=== PATIENT | female | born 1950 | race Caucasian/White ===

== ENCOUNTER 2023-11-20 18:09 | Emergency (ER) | payer MEDICARE, SELFPAY ==
[2023-11-20 18:09] VITALS: BP 130/88; PULSE 67; RESP 15; RESP 16; TEMP 36.8; O2SAT 97; O2SAT 98; BMI 26.5
--- NOTE | 2023-11-20 18:22 | EDS_ITS ---
HPI <ROSA Cosme - Last Filed: 11/20/23 19:44> History of Present Illness Chief Complaint: Lower Extremity Injury Narrative Narrative: 73-year-old female hit her left fifth toe on a door frame causing pain and a laceration. She is ambulatory. She states she broke the left fifth toe years ago and has a deformity. PFSH <ROSA Cosme - Last Filed: 11/20/23 19:44> [facility] Medical History (Updated 11/20/23 @ 19:19 by ROSA Cosme) Arthritis Back pain Difficulty balancing Hemorrhoids Knee pain Home Medications bupropion HCl 150 mg 24 hr tablet, extended release 150 mg PO DAILY 11/20/23 [History Last Taken Unknown] cephalexin 500 mg capsule 500 mg PO BID 7 days #14 caps 11/20/23 [Rx Last Taken Unknown] triamterene 37.5 mg-hydrochlorothiazide 25 mg capsule 1 cap PO DAILY 11/20/23 [History Last Taken Unknown] Allergy/AdvReac Type Severity Reaction Status Date / Time No Known Allergies Allergy Verified 11/20/23 18:11 Family History (Updated 07/10/18 @ 09:22 by Becky Baez) Other Breast cancer Colon cancer Lung cancer Malignant neoplasm of throat Pancreatic cancer Social History (Updated 07/10/18 @ 09:40 by ROSA Perez) Smoking Status: Former smoker alcohol intake: current ROS <ROSA Cosme - Last Filed: 11/20/23 19:44> ROS ED ROS Narrative Neuro: Negative for motor/sensory dysfunction. Skin: Positive for wound. Musc: Positive for left fifth toe pain. EXAM <ROSA Cosme - Last Filed: 11/20/23 19:44> Physical Exam Narrative Exam Narrative: CONST: Patient sitting in no acute distress. EYES: Normal inspection. EXTREMITIES: Left fifth toe has chronic deformity per patient and is raised above the rest. It has soft tissue swelling and is tender to palpation. No other tenderness of the ankle or foot. 1 cm linear laceration on the plantar aspect base of the fifth toe with no active bleeding no foreign body. NEURO: Alert and answering questions appropriately. PSYCH: Normal affect. Const Vital Signs: 11/20/23 18:09 11/20/23 18:09 Temperature 98.3 F 98.3 F Temperature Source Temporal Temporal Pulse Rate 67 67 Respiratory Rate 15 16 Blood Pressure 130/88 H 130/88 H Blood Pressure Mean 102 102 Pulse Ox 98 97 Oxygen Delivery Method Room Air Room Air <Dr. Jason Barone DO - Last Filed: 11/20/23 19:41> Physical Exam Const Vital Signs: 11/20/23 18:09 11/20/23 18:09 Temperature 98.3 F 98.3 F Temperature Source Temporal Temporal Pulse Rate 67 67 Respiratory Rate 15 16 Blood Pressure 130/88 H 130/88 H Blood Pressure Mean 102 102 Pulse Ox 98 97 Oxygen Delivery Method Room Air Room Air MDM <Celestina Lion PA - Last Filed: 11/20/23 19:44> [facility] Narrative Medical decision making narrative: Patient has an open left fifth toe fracture. I repaired the 1 cm laceration with 3 sutures. See procedure note. I discussed the case with Dr. Rice who advised Fabrice and he will see her in the office this week for wound recheck. Patient was comfortable with this plan and discharged in stable condition. Patient seen and evaluated with ZINA. I personally interviewed and examined the patient. I was involved in all aspects of patient's orders, interpretation of results, and treatment. Patient presents with an injury to her left small toe. Patient states that she bumped it on a door frame. She has had prior fracture to this toe. She sustained a laceration. She states she is up-to-date on tetanus. She is not on blood thinners. Left foot-patient has 1 cm laceration at the plantar aspect of the proximal phalanx of the fifth toe. Mild diffuse bony tenderness about the fifth MTP joint and fifth toe diffusely. No significant ecchymosis or bruising noted. Will obtain x-rays of the left foot. Patient will require suture repair of the laceration. Three-view x-rays of the left foot obtained interpreted by myself as fracture at the base of the proximal phalanx of the fifth toe. Official report from radiology pending. Physician geriatric assistant irrigated the wound and sutured the laceration see procedure note. Will discuss with podiatry to arrange close follow-up. Will start on Keflex. Radiography Diagnostic Testing: Clinical Impression(s) from Imaging Studies Toe X-Ray 11/20/23 18:33 IMPRESSION: undefined <Dr. Jason Barone, DO - Last Filed: 11/20/23 19:41> [facility] Narrative Medical decision making narrative: Patient seen and evaluated with ZINA. I personally interviewed and examined the patient. I was involved in all aspects of patient's orders, interpretation of results, and treatment. Patient presents with an injury to her left small toe. Patient states that she bumped it on a door frame. She has had prior fracture to this toe. She sustained a laceration. She states she is up-to-date on tetanus. She is not on blood thinners. Left foot-patient has 1 cm laceration at the plantar aspect of the proximal phalanx of the fifth toe. Mild diffuse bony tenderness about the fifth MTP joint and fifth toe diffusely. No significant ecchymosis or bruising noted. Will obtain x-rays of the left foot. Patient will require suture repair of the laceration. Three-view x-rays of the left foot obtained interpreted by myself as fracture at the base of the proximal phalanx of the fifth toe. Official report from radiology pending. Physician geriatric assistant irrigated the wound and sutured the laceration see procedure note. Will discuss with podiatry to arrange close follow-up. Will start on Keflex. Radiography Diagnostic Testing: Clinical Impression(s) from Imaging Studies Toe X-Ray 11/20/23 18:33 IMPRESSION: undefined Three-view x-rays of the left foot obtained interpreted by myself as nondisplaced fracture of the base of the proximal phalanx of the fifth small toe. Radiology in agreement. Procedures <ROSA Cosme - Last Filed: 11/20/23 19:44> Lacerations lefy 5th toe: Length: 1 cm Depth: Skin Shape: Linear Prep: Sterile Conditions Irrigated (ml): 150 Number of Sutures/[place]: 3 Suture Information: Ethilon and 5-0 Discharge Plan Triage Chief Complaint: Lower Extremity Injury ED Midlevel Provider: Celestina Lion ED Provider: Jason Baorne Dx/Rx/DC Orders Clinical Impression: Fracture of fifth toe, left, open Instructions: ED Fracture, Toe, Open Prescriptions: New cephalexin 500 mg capsule 500 mg PO BID 7 Days Qty: 14 0RF No Action triamterene-hydrochlorothiazid 37.5-25 mg capsule 1 cap PO DAILY bupropion HCl 150 mg tablet extended release 24 hr 150 mg PO DAILY Primary Care Provider: Laura Lopes Referrals: Dre Rice DPM [Med Staff - Active Staff] - Laura Lopes MD [Primary Care Provider] - Activity Restrictions/Additional Instructions: Please call the route service representative for an appointment so he can recheck the area in several days to make sure no infection develops. Disposition Disposition: Home, Self Care
--- NOTE | 2023-11-20 18:33 | RAD_ITS ---
STUDY: X-RAY LEFT FOOT, FIFTH TOE REASON FOR EXAM: Female, 73 years old. injury left pinky toe TECHNIQUE: 3 view(s) of the toe were obtained. COMPARISON: None. FINDINGS: Mildly displaced fracture across the base of the fifth proximal phalanx. No other abnormalities. Electronically Signed: Andrea Aldana MD at 19:29 EDT , RAD/Toe(s) Min 2 Views IMPRESSION: undefined
[2023-11-20] MEDS: Lidocaine 1% (20 ml mdv) 20 ML Vial INFILT (18:39)
[2023-11-20] MEDS: Cephalexin 250 MG Capsule 500 MG PO (19:57)
== END 2023-11-20 20:03 | disposition home or self-care (01) ==
PROVIDERS: Emergency Provider Emergency Medicine; PCP Internal Medicine; Visit Provider Emergency Medicine
DX: S92.512B Displaced fracture of proximal phalanx of left lesser toe(s), initial encounter for open fracture (principal); Z87.891 Personal history of nicotine dependence; Z79.899 Other long term (current) drug therapy; M20.5X2 Other deformities of toe(s) (acquired), left foot; W22.09XA Striking against other stationary object, initial encounter
CPT/HCPCS: 12001; 73660; 99283